=== PATIENT | male | born 1990 | race African-American/Black ===

== ENCOUNTER 2017-05-08 10:54 | Emergency (ER) | payer MEDICAID ==
[~2017-05-08] VITALS: Ht 182.9 cm; Wt 79.5 kg
[2017-05-08 10:55] VITALS: BP 126/64; PULSE 76; RESP 16; TEMP 99.1; O2SAT 100
[2017-05-08] MEDS ORDERED: SODIUM CHLOR 0.9% 1000 ML INJ 1,000 ML IV ONE (12:00)
[2017-05-08] MEDS ORDERED: diphenhydrAMINE HCL 50 MG/ML VIAL IV PUSH ONE (12:00)
[2017-05-08] MEDS ORDERED: PROCHLORPERAZINE INJ 10 MG/2 ML VIAL IV PUSH ONE (12:00)
--- NOTE | 2017-05-08 12:29 | RADRPT ---
EXAM DATE/TIME: 05/08/2017 12:04 [facility] COMPARISON: No previous studies available for comparison. INDICATIONS : Headache, vomiting and generalized weakness. RADIATION DOSE: 56.35 CTDIvol (mGy) MEDICAL HISTORY : None SURGICAL HISTORY : None. ENCOUNTER: Initial ACUITY: 2 days PAIN SCALE: 6/10 LOCATION: Bilateral cranial TECHNIQUE: Multiple contiguous axial images were obtained of the head. Using automated exposure control and adj ustment of the mA and/or kV according to patient size, radiation dose was kept as low as reasonably a chievable to obtain optimal diagnostic quality images. DICOM format image data is available electro nically for review and comparison. FINDINGS: CEREBRUM: The ventricles are normal for age. No evidence of midline shift, mass lesion, hemorrhage or acute in farction. No extra-axial fluid collections are seen. POSTERIOR FOSSA: The cerebellum and brainstem are intact. The 4th ventricle is midline. The cerebellopontine angle i s unremarkable. EXTRACRANIAL: The visualized portion of the orbits is intact. SKULL: The calvaria is intact. No evidence of skull fracture. CONCLUSION: Normal examination for a patient of this age. Jimbo Nath MD on May 08, 2017 at 12:26 Board Certified Radiologist. This report was verified electronically.
[2017-05-08 12:33] LABS: AUTOMATED NEUTROPHIL # 14.2 TH/MM3 (1.8-7.7); BASOPHIL # 0.1 TH/MM3 (0-0.2); BASOPHIL % 0.7 % (0.0-2.0); EOSINOPHIL % 0.1 % (0.0-4.0); HEMATOCRIT 42.5 % (39.0-51.0); HEMOGLOBIN 13.9 GM/DL (13.0-17.0); LYMPH % 9.5 % (9.0-44.0); LYMPHOCYTE # 1.6 TH/MM3 (1.0-4.8); MEAN CELL VOLUME 79.8 FL (80.0-100.0); MEAN CORPUSCULAR HEMOGLOBIN 26.2 PG (27.0-34.0); MEAN CORPUSCULAR HGB CONC 32.8 % (32.0-36.0); MEAN PLATELET VOLUME 8.7 FL (7.0-11.0); MONO % 6.6 % (0.0-8.0); MONOCYTE # 1.1 TH/MM3 (0-0.9); NEUT % 83.1 % (16.0-70.0); PLATELET COUNT 298 TH/MM3 (150-450); RED BLOOD COUNT 5.32 MIL/MM3 (4.50-5.90); RED CELL DISTRIBUTION WIDTH 13.6 % (11.6-17.2)
[2017-05-08 12:43] LABS: CALCIUM 9.1 MG/DL (8.5-10.1); CREATININE 0.96 MG/DL (0.60-1.30); MAGNESIUM 2.4 MG/DL (1.5-2.5)
[2017-05-08] MEDS ORDERED: KETOROLAC TROMETHAMINE 30 MG/ML (IVP) VIAL IV PUSH ONE (12:45)
--- NOTE | 2017-05-08 13:48 | PD ---
HPI Chief Complaint: Headache Time Seen by Provider: 11:37 Travel History International Travel<30 days: No Contact w/Intl Traveler<30days: No Traveled to known affect area: No History of Present Illness HPI 26-year-old male that presents to the ED for evaluation of left-sided headache. The patient she's had this headache since this morning. Per family member patient has had headaches on and off for some time but this is the worse one he' s had so far. Patient was at work when this headache started. His been vomiting multiple times. He states that for the most part he is able to deal with them with no issues. This the first time he is actually has to come to see her doctor. Per family member he has not seen anybody for this before. No history of migraine headaches. No family history of headaches. Per patient she 's had some congestion but no cough or runny nose. Vomited has been clear. He is unable to keep anything down today. Denies any diarrhea. Headache is 7 out of 10. Per patient light makes it worse. Denies any blurry vision or double vision. Per patient he mainly affects the left side of the head. PFSH Past Medical History Headaches: Yes Tetanus Vaccination: Unknown Influenza Vaccination: No Past Surgical History Abdominal Surgery: Yes (HERNIA SX) Social History Alcohol Use: No Tobacco Use: No Substance Use: No Allergies-Medications (Allergen,Severity, Reaction): Coded Allergies: pollen extracts (Verified Allergy, Unknown, 05/08/17) Reported Meds & Prescriptions Reported Meds & Active Scripts Active Zofran (Ondansetron HCl) 4 Mg Tab 4 Mg PO Q6HR PRN Diclofenac Sodium DR (Diclofenac Sodium) 75 Mg Tabdr 75 Mg PO BID PRN Review of Systems Except as stated in HPI: all other systems reviewed are Neg Physical Exam Narrative GENERAL: SKIN: Warm and dry. HEAD: Atraumatic. Normocephalic. EYES: Pupils equal and round 4mm reactive to light and accomodation. No scleral icterus. No injection or drainage. ENT: No nasal bleeding or discharge. Mucous membranes pink and moist. Tongue is midline. No uvula deviation. NECK: Trachea midline. No JVD. CARDIOVASCULAR: Regular rate and rhythm. No murmurs, S3, S4. RESPIRATORY: No accessory muscle use. Clear to auscultation. Breath sounds equal bilaterally. GASTROINTESTINAL: Abdomen soft, non-tender, nondistended. Hepatic and splenic margins not palpable. MUSCULOSKELETAL: Extremities without clubbing, cyanosis, or edema. No obvious deformities. Full range of motion of the upper and lower extremities bilaterally. 2+ pulses bilaterally. NEUROLOGICAL: Awake and alert. No obvious cranial nerve deficits. Motor grossly within normal limits. Five out of 5 muscle strength in the arms and legs. Normal speech. PSYCHIATRIC: Appropriate mood and affect; insight and judgment normal. Data Data Last Documented VS Vital Signs Date Time Temp Pulse Resp B/P (MAP) Pulse Ox O2 Delivery O2 Flow Rate FiO2 05/08/17 14:24 68 16 120/66 (84) 100 Room Air 05/08/17 10:55 99.1 Orders Orders Complete Blood Count With Diff (05/08/17 11:45) Basic Metabolic Panel (Bmp) (05/08/17 11:45) Magnesium (Mg) (05/08/17 11:45) Influenzae A/B Antigen (05/08/17 11:45) Ct Brain W/O Iv Contrast(Rout) (05/08/17 11:45) Prochlorperazine Inj (Compazine Inj) (05/08/17 12:00) Diphenhydramine Inj (Benadryl Inj) (05/08/17 12:00) Sodium Chlor 0.9% 1000 Ml Inj (Ns 1000 M (05/08/17 12:00) Ketorolac Inj (Toradol Inj) (05/08/17 12:45) Ct Abd/Pel W Iv Contrast(Rout) (05/08/17 ) Iohexol 350 Inj (Omnipaque 350 Inj) (05/08/17 14:31) Ed Discharge Order (05/08/17 15:21) Labs Laboratory Tests Test 05/08/17 12:00 White Blood Count 17.0 TH/MM3 Red Blood Count 5.32 MIL/MM3 Hemoglobin 13.9 GM/DL Hematocrit 42.5 % Mean Corpuscular Volume 79.8 FL Mean Corpuscular Hemoglobin 26.2 PG Mean Corpuscular Hemoglobin Concent 32.8 % Red Cell Distribution Width 13.6 % Platelet Count 298 TH/MM3 Mean Platelet Volume 8.7 FL Neutrophils (%) (Auto) 83.1 % Lymphocytes (%) (Auto) 9.5 % Monocytes (%) (Auto) 6.6 % Eosinophils (%) (Auto) 0.1 % Basophils (%) (Auto) 0.7 % Neutrophils # (Auto) 14.2 TH/MM3 Lymphocytes # (Auto) 1.6 TH/MM3 Monocytes # (Auto) 1.1 TH/MM3 Eosinophils # (Auto) 0.0 TH/MM3 Basophils # (Auto) 0.1 TH/MM3 CBC Comment DIFF FINAL Differential Comment Blood Urea Nitrogen 13 MG/DL Creatinine 0.96 MG/DL Random Glucose 84 MG/DL Calcium Level 9.1 MG/DL Magnesium Level 2.4 MG/DL Sodium Level 139 MEQ/L Potassium Level 4.2 MEQ/L Chloride Level 104 MEQ/L Carbon Dioxide Level 30.0 MEQ/L Anion Gap 5 MEQ/L Estimat Glomerular Filtration Rate 95 ML/MIN MDM Medical Decision Making Medical Screen Exam Complete: Yes Emergency Medical Condition: Yes Medical Record Reviewed: Yes Interpretation(s) CBC & BMP Diagram 05/08/17 12:00 Calcium Level 9.1, Magnesium Level 2.4 Differential Diagnosis Cephalgia versus headache versus sinus headache versus influenza versus viral illness versus cluster headache versus migraine headache Narrative Course 26-year-old male that presents to the ED for evaluation of headache. Patient was properly examined and was found to have signs and symptoms of unclear etiology. Possible viral infection. Labs and imaging were ordered. Labs and imaging were essentially unremarkable as are for leukocytosis. My attending evaluated the patient and calming CT of the abdomen as patient does appear to be having some abdominal discomfort per my attending. Patient's headache feels improved. CT of the abdomen was negative other than for distended bladder from urine. Otherwise unremarkable. Patient and family were reassured. Patient feels improved. Patient was told to follow with PCP. See ED for worsening symptoms. Diagnosis Primary Impression: Headache Qualified Codes: G44.019 - Episodic cluster headache, not intractable Patient Instructions: General Instructions Additional Instructions: Take medications as prescribed. Whenever you feel like the headache is coming please take a Tylenol or Motrin before it becomes bad enough to cause you severe pain. See ED worsening symptoms. Follow with PCP. Med/Other Pt SpecificInfo: Prescription(s) given Scripts Ondansetron (Zofran) 4 Mg Tab 4 MG PO Q6HR Y for NAUSEA OR VOMITING, #10 TAB 0 Refills Prov: Meera Hall MD 1/24/[address] (Diclofenac Sodium DR) 75 Mg Tabdr 75 MG PO BID Y for PAIN SCALE 1 TO 10, #20 TAB 0 Refills Prov: Meera Hall MD 05/08/17 Disposition: 01 DISCHARGE HOME Condition: Stable Jayy Kenyon May 08, 2017 13:48
[2017-05-08 14:24] VITALS: BP 120/66; PULSE 68; RESP 16; O2SAT 100
[2017-05-08] MEDS ORDERED: IOHEXOL 350 MG/ML 10 ML VIAL (for RAD DIAG) IVCONTRAST ONE (14:31)
--- NOTE | 2017-05-08 14:41 | RADRPT ---
EXAM DATE/TIME: 05/08/2017 13:59 [facility] COMPARISON: No previous studies available for comparison. INDICATIONS : Weakness, vomiting IV CONTRAST: 96 cc Omnipaque 350 (iohexol) IV ORAL CONTRAST: No oral contrast ingested. RADIATION DOSE: 6.64 CTDIvol (mGy) MEDICAL HISTORY : None SURGICAL HISTORY : None. ENCOUNTER: Initial ACUITY: 1 week PAIN SCALE: 6/10 LOCATION: upper quadrant TECHNIQUE: Volumetric scanning of the abdomen and pelvis was performed. Using automated exposure control and ad justment of the mA and/or kV according to patient size, radiation dose was kept as low as reasonably achievable to obtain optimal diagnostic quality images. DICOM format image data is available electro nically for review and comparison. FINDINGS: LOWER LUNGS: The visualized lower lungs are clear. LIVER: Homogeneous density without lesion. There is no dilation of the biliary tree. No calcified gallston es. SPLEEN: Normal size without lesion. PANCREAS: Within normal limits. KIDNEYS: Normal in size and shape. There is no mass, stone or hydronephrosis. ADRENAL GLANDS: Within normal limits. VASCULAR: There is no aortic aneurysm. BOWEL/MESENTERY: The stomach, small bowel, and colon demonstrate no acute abnormality. There is no free intraperitone al air or fluid. ABDOMINAL WALL: Within normal limits. RETROPERITONEUM: There is no lymphadenopathy. BLADDER: No wall thickening or mass. Distention of the urinary bladder. REPRODUCTIVE: Within normal limits. INGUINAL: There is no lymphadenopathy or hernia. MUSCULOSKELETAL: Within normal limits for patient age. CONCLUSION: 1. Distended urinary bladder. 2. No acute inflammatory process. Juan Antonio Crouch MD on May 08, 2017 at 14:33 Board Certified Radiologist. This report was verified electronically.
[2017-05-08] MEDS ORDERED: DICL75TA PO (15:20)
[2017-05-08] MEDS ORDERED: ZOFR4TAB PO (15:20)
--- NOTE | 2017-05-08 16:15 | PD ---
Data Data Last Documented VS Vital Signs Date Time Temp Pulse Resp B/P (MAP) Pulse Ox O2 Delivery O2 Flow Rate FiO2 05/08/17 16:05 05/08/17 14:24 68 16 100 Room Air 05/08/17 10:55 99.1 Orders Orders Complete Blood Count With Diff (05/08/17 11:45) Basic Metabolic Panel (Bmp) (05/08/17 11:45) Magnesium (Mg) (05/08/17 11:45) Influenzae A/B Antigen (05/08/17 11:45) Ct Brain W/O Iv Contrast(Rout) (05/08/17 11:45) Prochlorperazine Inj (Compazine Inj) (05/08/17 12:00) Diphenhydramine Inj (Benadryl Inj) (05/08/17 12:00) Sodium Chlor 0.9% 1000 Ml Inj (Ns 1000 M (05/08/17 12:00) Ketorolac Inj (Toradol Inj) (05/08/17 12:45) Ct Abd/Pel W Iv Contrast(Rout) (05/08/17 ) Iohexol 350 Inj (Omnipaque 350 Inj) (05/08/17 14:31) Ed Discharge Order (05/08/17 15:21) Labs Laboratory Tests Test 05/08/17 12:00 White Blood Count 17.0 TH/MM3 Red Blood Count 5.32 MIL/MM3 Hemoglobin 13.9 GM/DL Hematocrit 42.5 % Mean Corpuscular Volume 79.8 FL Mean Corpuscular Hemoglobin 26.2 PG Mean Corpuscular Hemoglobin Concent 32.8 % Red Cell Distribution Width 13.6 % Platelet Count 298 TH/MM3 Mean Platelet Volume 8.7 FL Neutrophils (%) (Auto) 83.1 % Lymphocytes (%) (Auto) 9.5 % Monocytes (%) (Auto) 6.6 % Eosinophils (%) (Auto) 0.1 % Basophils (%) (Auto) 0.7 % Neutrophils # (Auto) 14.2 TH/MM3 Lymphocytes # (Auto) 1.6 TH/MM3 Monocytes # (Auto) 1.1 TH/MM3 Eosinophils # (Auto) 0.0 TH/MM3 Basophils # (Auto) 0.1 TH/MM3 CBC Comment DIFF FINAL Differential Comment Blood Urea Nitrogen 13 MG/DL Creatinine 0.96 MG/DL Random Glucose 84 MG/DL Calcium Level 9.1 MG/DL Magnesium Level 2.4 MG/DL Sodium Level 139 MEQ/L Potassium Level 4.2 MEQ/L Chloride Level 104 MEQ/L Carbon Dioxide Level 30.0 MEQ/L Anion Gap 5 MEQ/L Estimat Glomerular Filtration Rate 95 ML/MIN MDM Supervised Visit with [facility]: Yes Narrative Course The history, exam, and medical decision-making in the associated midlevel provider note were completed with my assistance. I reviewed and agree with the findings presented. I attest that I had a [id number] encounter with the patient on the same day, and personally performed and documented my assessment and findings in the medical record. *My assessment and Findings: This is a 26 year old male who presents the emergency department with headache. He's had headache like this before. He describes in the left side of his head typical cluster headache. He also has a leukocytosis. He is a little bit of a poor historian and he had multiple episodes of vomiting this morning and was somewhat tender on my abdominal exam. A CT abdomen and pelvis was obtained which was reassuring. I think patient can be discharged home. He feels much better after migraine cocktail and fluids. I suspect his leukocytosis is a deep margination in the setting of vomiting from his headache. Diagnosis Primary Impression: Headache Qualified Codes: G44.019 - Episodic cluster headache, not intractable Patient Instructions: General Instructions, Diclofenac (By mouth), Ondansetron (By mouth, Into the mouth) Departure Forms: Work Release, Enter return to work date: May 10, 2017 Tests/Procedures Additional Instruction: Take medications as prescribed. Whenever you feel like the headache is coming please take a Tylenol or Motrin before it becomes bad enough to cause you severe pain. See ED worsening symptoms. Follow with PCP. Scripts Ondansetron (Zofran) 4 Mg Tab 4 MG PO Q6HR Y for NAUSEA OR VOMITING, #10 TAB 0 Refills Prov: Meera Hall MD 05/08/[address] (Diclofenac Sodium DR) 75 Mg Tabdr 75 MG PO BID Y for PAIN SCALE 1 TO 10, #20 TAB 0 Refills Prov: Meera Hall MD 05/08/17 Disposition: 01 DISCHARGE HOME Condition: Stable Meera Hall MD May 08, 2017 16:15
== END 2017-05-08 16:07 | disposition home or self-care (01) ==
LOC: NEPD 10:54
DX: G44.019 Episodic cluster headache, not intractable (principal); D72.829 Elevated white blood cell count, unspecified; R11.10 Vomiting, unspecified; R09.81 Nasal congestion
CPT/HCPCS: 70450; 74177; 80048; 83735; 85025; 87804; 96361; 96374; 96375; 99285; J0780; J1200; J1885; J7030; Q9967